=== PATIENT | female | born 1960 | race Caucasian/White ===

== ENCOUNTER 2018-05-22 10:33 | Emergency (ER) | payer OTHER ==
--- NOTE | 2018-05-22 12:12 | RAD REPORT ---
EXAM DESCRIPTION: Lawson Mathew (2 Views)05/22/2018 11:55 am CLINICAL HISTORY: Cough COMPARISON: February 2017 FINDINGS: The lungs appear clear of acute infiltrate. The heart is normal size IMPRESSION: No acute abnormalities displayed
[2018-05-22] MEDS ORDERED: ALBUTEROL 2.5 MG/3 ML NEB SOL ONE (14:05)
--- NOTE | 2018-05-22 14:29 | ER ---
Nurse's Notes [facility] Name: Winnie Underwood Age: 57 yrs Sex: Female : 1960 Arrival Date: 05/22/2018 Time: 10:38 Bed 26 Private MD: Tim Daniel Diagnosis: Cough Presentation: 05/22 11:19 Presenting complaint: Patient states: Cough and congestion since Thursday, seen by urgent aj care on Thursday and DX with URI, given Cefdinir and Tessalon Perles. Reports cough is worse at night. Transition of care: patient was not received from another setting of care. Onset of symptoms was May 15, 2018. Risk Assessment: Do you want to hurt yourself or someone else? Patient reports no desire to harm self or others. Initial Sepsis Screen: Does the patient meet any 2 criteria? No. Patient's initial sepsis screen is negative. Does the patient have a suspected source of infection? No. Patient's initial sepsis screen is negative. Care prior to arrival: None. 11:19 Method Of Arrival: Ambulatory aj 11:19 Acuity: YADIRA 3 aj Triage Assessment: 11:22 General: Appears in no apparent distress. comfortable, Behavior is calm, cooperative, aj appropriate for age. Pain: Denies pain. EENT: Reports nasal congestion nasal discharge. Neuro: Level of Consciousness is awake, alert, obeys commands, Oriented to person, place, time, situation, Appropriate for age. Respiratory: Airway is patent Respiratory effort is even, unlabored, Respiratory pattern is regular, symmetrical. Derm: Skin is intact, is healthy with good turgor, Skin is pink, warm \T\ dry. normal. Historical: - Allergies: 11:22 No Known Allergies; aj - PMHx: 11:22 Crohn's; Hypertension; Hypothyroidism; aj - PSHx: 11:22 Hysterectomy; Cholecystectomy; Appendectomy; aj - Immunization history:: Adult Immunizations up to date. - Social history:: Smoking status: Patient/guardian denies using tobacco. - Ebola Screening: : Patient negative for fever greater than or equal to 101.5 degrees Fahrenheit, and additional compatible Ebola Virus Disease symptoms Patient denies exposure to infectious person Patient denies travel to an Ebola-affected area in the 21 days before illness onset No symptoms or risks identified at this time. Screenin:38 Abuse screen: Denies threats or abuse. Nutritional screening: No deficits noted. tl3 Tuberculosis screening: No symptoms or risk factors identified. Fall Risk None identified. Assessment: 13:30 General: Appears in no apparent distress. uncomfortable, well groomed, well developed, tl3 well nourished, Behavior is calm, cooperative, appropriate for age. Pain: Denies pain. Neuro: No deficits noted. Level of Consciousness is awake, alert, obeys commands. Cardiovascular: Heart tones S1 S2 present Patient's skin is warm and dry. Respiratory: Reports cough that is hacking, Airway is patent Respiratory effort is even, unlabored, Respiratory pattern is regular, symmetrical. GI: No signs and/or symptoms were reported involving the gastrointestinal system. : No signs and/or symptoms were reported regarding the genitourinary system. EENT: No signs and/or symptoms were reported regarding the EENT system. Derm: No deficits noted. No signs and/or symptoms reported regarding the dermatologic system. Musculoskeletal: No signs and/or symptoms reported regarding the musculoskeletal system. 14:38 Reassessment: Patient appears in no apparent distress at this time. Patient and/or tl3 family updated on plan of care and expected duration. Pain level reassessed. Patient is alert, oriented x 3, equal unlabored respirations, skin warm/dry/pink. Tremaine at bedside discussing POC with pt. Vital Signs: 11:22 BP 128 / 80; Pulse 105; Resp 19; Temp 98.1; Pulse Ox 97% on R/A; Weight 104.33 kg; aj Height 5 ft. 7 in. (170.18 cm); 14:38 BP 116 / 84; Pulse 100; Resp 18; Pulse Ox 96% on R/A; tl3 11:22 Body Mass Index 36.02 (104.33 kg, 170.18 cm) aj ED Course: 10:38 Patient arrived in ED. mr 10:38 Tim Daniel MD is Private Physician. mr 11:21 Triage completed. aj 11:22 Arm band placed on left wrist. Patient placed in waiting room, Patient notified of wait aj time. X-ray ordered. 11:43 Patient moved to radiology. ag1 11:52 Chest Pa And Lat (2 Views) XRAY In Process Unspecified. EDMS 13:37 Tremaine Lopez PA is PHCP. jr8 13:37 Juan Schwartz MD is Attending Physician. jr8 13:57 Irais Larson, DAVID is Primary Nurse. tl3 14:28 Tim Daniel MD is Referral Physician. jr8 14:38 Patient has correct armband on for positive identification. Bed in low position. tl3 14:38 No provider procedures requiring assistance completed. Patient did not have IV access tl3 during this emergency room visit. Administered Medications: 14:02 Drug: Albuterol 2.5 mg Route: Inhalation; tl3 14:23 Follow up: Response: No adverse reaction tl3 Outcome: 14:28 Discharge ordered by . jr8 14:38 Discharged to home ambulatory. tl3 14:38 Condition: stable 14:38 Discharge instructions given to patient, Instructed on discharge instructions, follow up and referral plans. medication usage, Demonstrated understanding of instructions, follow-up care, medications, Prescriptions given X 3. 14:41 Patient left the ED. tl3 Signatures: Dispatcher [employer] EDMS Jemima Fuentes RN RN aj Rivera, Mary mr Tremaine Lopez PA PA [facility] Phylicia Yeh 1 Irais Larson, RN RN tl3 Corrections: (The following items were deleted from the chart) 14:38 13:30 BP 116 / 84; Pulse 100bpm; Resp 18bpm; Pulse Ox 96% RA; tl3 tl3
--- NOTE | 2018-05-22 14:29 | EDPHYS ---
Physician Documentation [facility] Name: Winnie Underwood Age: 57 yrs Sex: Female : 1960 Arrival Date: 05/22/2018 Time: 10:38 Bed 26 Private MD: Tim Daniel ED Physician Juan Schwartz HPI: 05/22 14:19 This 57 yrs old Female presents to ER via Ambulatory with complaints of jr8 Cough, Chest Congestion. 14:19 The patient or guardian reports cough, that is intermittent, described as moderate, jr8 with no sputum. Onset: The symptoms/episode began/occurred gradually, 1 week(s) ago. Severity of symptoms: At their worst the symptoms were mild, in the emergency department the symptoms are unchanged. Modifying factors: The symptoms are alleviated by nothing, the symptoms are aggravated by nothing. Associated signs and symptoms: The patient has no apparent associated signs or symptoms. The patient has not experienced similar symptoms in the past. The patient has been recently seen by a physician:. was given antibiotic and Tessalon pearls. Still coughing . Historical: - Allergies: 11:22 No Known Allergies; aj - PMHx: 11:22 Crohn's; Hypertension; Hypothyroidism; aj - PSHx: 11:22 Hysterectomy; Cholecystectomy; Appendectomy; aj - Immunization history:: Adult Immunizations up to date. - Social history:: Smoking status: Patient/guardian denies using tobacco. - Ebola Screening: : Patient negative for fever greater than or equal to 101.5 degrees Fahrenheit, and additional compatible Ebola Virus Disease symptoms Patient denies exposure to infectious person Patient denies travel to an Ebola-affected area in the 21 days before illness onset No symptoms or risks identified at this time. ROS: 14:19 Eyes: Negative for injury, pain, redness, and discharge, ENT: Negative for injury, jr8 pain, and discharge, Neck: Negative for injury, pain, and swelling, Cardiovascular: Negative for chest pain, palpitations, and edema, Abdomen/GI: Negative for abdominal pain, nausea, vomiting, diarrhea, and constipation, Back: Negative for injury and pain, MS/Extremity: Negative for injury and deformity, Skin: Negative for injury, rash, and discoloration, Neuro: Negative for headache, weakness, numbness, tingling, and seizure. 14:19 Respiratory: Positive for cough, Negative for dyspnea on exertion, hemoptysis, pleurisy, shortness of breath, sputum production, wheezing. Exam: 14:19 Eyes: Pupils equal round and reactive to light, extra-ocular motions intact. Lids and jr8 lashes normal. Conjunctiva and sclera are non-icteric and not injected. Cornea within normal limits. Periorbital areas with no swelling, redness, or edema. ENT: Nares patent. No nasal discharge, no septal abnormalities noted. Tympanic membranes are normal and external auditory canals are clear. Oropharynx with no redness, swelling, or masses, exudates, or evidence of obstruction, uvula midline. Mucous membranes moist. Neck: Trachea midline, no thyromegaly or masses palpated, and no cervical lymphadenopathy. Supple, full range of motion without nuchal rigidity, or vertebral point tenderness. No Meningismus. Cardiovascular: Regular rate and rhythm with a normal S1 and S2. No gallops, murmurs, or rubs. Normal PMI, no JVD. No pulse deficits. Abdomen/GI: Soft, non-tender, with normal bowel sounds. No distension or tympany. No guarding or rebound. No evidence of tenderness throughout. Back: No spinal tenderness. No costovertebral tenderness. Full range of motion. Skin: Warm, dry with normal turgor. Normal color with no rashes, no lesions, and no evidence of cellulitis. MS/ Extremity: Pulses equal, no cyanosis. Neurovascular intact. Full, normal range of motion. Neuro: Awake and alert, GCS 15, oriented to person, place, time, and situation. Cranial nerves II-XII grossly intact. Motor strength 5/5 in all extremities. Sensory grossly intact. Cerebellar exam normal. Normal gait. 14:19 Respiratory: the patient does not display signs of respiratory distress, Respirations: normal, symetrical, no use of accessory muscles, no grunting, no evidence of nasal flaring, no appreciated paradoxical movements, no prolonged exhalations, no pursed lip breathing, no retractions, no shallow respirations, no splinting, no tachypnea, Breath sounds: wheezing: expiratory that is mild, is heard diffusely. Vital Signs: 11:22 BP 128 / 80; Pulse 105; Resp 19; Temp 98.1; Pulse Ox 97% on R/A; Weight 104.33 kg; aj Height 5 ft. 7 in. (170.18 cm); 14:38 BP 116 / 84; Pulse 100; Resp 18; Pulse Ox 96% on R/A; tl3 11:22 Body Mass Index 36.02 (104.33 kg, 170.18 cm) aj MDM: 13:37 Patient medically screened. jr8 14:27 Differential Diagnosis: Bronchitis Influenza Upper Respiratory Infection Pharyngitis jr8 Viral Syndrome Pneumonia. Data reviewed: vital signs, nurses notes, radiologic studies, plain films, and as a result, I will discharge patient. Data interpreted: Pulse oximetry: on room air is 97 %. Interpretation: normal. Counseling: I had a detailed discussion with the patient and/or guardian regarding: the historical points, exam findings, and any diagnostic results supporting the discharge/admit diagnosis, radiology results, the need for outpatient follow up, a family practitioner, to return to the emergency department if symptoms worsen or persist or if there are any questions or concerns that arise at home. Response to treatment: the patient's symptoms have mildly improved after treatment. 05/22 11:23 Order name: Chest Pa And Lat (2 Views) XRAY; Complete Time: 13:36 Administered Medications: 14:02 Drug: Albuterol 2.5 mg Route: Inhalation; tl3 14:23 Follow up: Response: No adverse reaction tl3 Disposition: 18:00 Co-signature as Attending Physician, Juan Schwartz MD. Disposition: 05/22/18 14:28 Discharged to Home. Impression: Cough. - Condition is Stable. - Discharge Instructions: Cough, Adult. - Prescriptions for Prednisone 20 mg Oral Tablet - take 1 tablet by ORAL route once daily for 5 days; 5 tablet. Albuterol Sulfate 90 mcg/actuation - inhale 1-2 puff by INHALATION route every 4-6 hours; 1 Inhaler. Fluconazole 150 mg Oral Tablet - take 1 tablet by ORAL route one time; 1 tablet. - Medication Reconciliation Form, Thank You Letter, Antibiotic Education, Prescription Opioid Use form. - Follow up: Tim Daniel MD; When: 2 - 3 days; Reason: Recheck today's complaints, Continuance of care, Re-evaluation by your physician. - Problem is new. - Symptoms have improved. Signatures: Dispatcher [employer] Jemima Kincaid RN RN aj Roszak, Tremaine, PA PA jr8 Juan Schwartz MD MD gs Lowrey, Tammy, RN RN tl3 Corrections: (The following items were deleted from the chart) 14:41 14:28 05/22/2018 14:28 Discharged to Home. Impression: Cough. Condition is Stable. tl3 Forms are Medication Reconciliation Form, Thank You Letter, Antibiotic Education, Prescription Opioid Use. Follow up: Tim Daniel; When: 2 - 3 days; Reason: Recheck today's complaints, Continuance of care, Re-evaluation by your physician. Problem is new. Symptoms have improved. jr8
== END 2018-05-22 14:41 | disposition home or self-care (01) ==
LOC: ER 10:33
DX: R05 Cough (principal); I10 Essential (primary) hypertension
CPT/HCPCS: 71046; 99284

== ENCOUNTER 2018-07-02 07:31 | Emergency (ER) | payer OTHER ==
--- NOTE | 2018-07-02 09:13 | RAD REPORT ---
EXAM DESCRIPTION: US - Extremity Nonvascular Complete - 07/02/2018 9:02 am CLINICAL HISTORY: pain behind right knee Swelling COMPARISON: No comparisons TECHNIQUE: Real-time sonographic evaluation of the area of interest was performed. FINDINGS: Real-time sonography of the right popliteal region shows no evidence of mass or cyst. No u nusual or unexpected finding in the region. IMPRESSION: Negative study.
[2018-07-02] MEDS ORDERED: HYDROCODONE/APAP 10/325 TAB ONE (09:32)
--- NOTE | 2018-07-02 09:53 | EDPHYS ---
Physician Documentation [facility] Name: Winnie Underwood Age: 57 yrs Sex: Female : 1960 Arrival Date: 07/02/2018 Time: 07:34 Bed 18 Private MD: Tim Daniel ED Physician Dago Amos HPI: 07/02 09:36 This 57 yrs old Female presents to ER via Wheelchair with complaints of Knee kdr Pain. 09:36 The patient presents with decreased range of motion, an injury, pain, that is acute, kdr tenderness. The complaints affect the posterior aspect of right knee. Context: The problem was sustained at home, resulted from Was bending her knee and felt a pop then she could no longer bear weight, the patient is not able to bear weight, the patient is not able to ambulate, Problem is a result from a previous injury: No. Onset: The symptoms/episode began/occurred suddenly, yesterday. Modifying factors: The symptoms are alleviated by supine with knee elevated on pillow. the symptoms are aggravated by movement, weight bearing. Associated signs and symptoms: The patient has no apparent associated signs or symptoms. Treatment prior to arrival includes: no previous treatment. Severity of symptoms: At their worst the symptoms were moderate, in the emergency department the symptoms are unchanged. The patient has not experienced similar symptoms in the past. The patient has been recently seen by a physician: The patient had been seen by Dr. Daniel earlier this week and had plain films done that were negative. Today, she felt a pop in the back of her leg and has not been able to weight. n/v intact distally. Historical: - Allergies: 08:11 No Known Allergies; sg - Home Meds: 08:11 Synthroid 88 mcg Oral tab 1 tab once daily [Active]; Synthroid 100 mcg Oral tab 1 tab sg once daily [Active]; irbesartan-hydrochlorothiazide 300-12.5 mg oral tab 1 tab once daily [Active]; methotrexate sodium 2.5 mg oral tab 1 tab once wkly [Active]; Raberazole Sodium 20 mg 1 tab daily [Active]; methscopolamine oral oral 1 tab [Active]; Pentasa 500 mg Oral cpER for Crohn's Disease [Active]; folic acid 1 mg Oral tab 1 tab once daily [Active]; aspirin 81 mg Oral chew 1 tab once daily [Active]; Probiotic oral oral daily [Active]; Remicade 100 mg intravenous solr every 8 wks [Active]; - PMHx: 08:11 Crohn's; Hypertension; Hypothyroidism; sg - PSHx: 08:11 Hysterectomy; Cholecystectomy; Appendectomy; sg - Immunization history:: Adult Immunizations up to date. - Social history:: Smoking status: Patient/guardian denies using tobacco. - Ebola Screening: : Patient negative for fever greater than or equal to 101.5 degrees Fahrenheit, and additional compatible Ebola Virus Disease symptoms Patient denies exposure to infectious person Patient denies travel to an Ebola-affected area in the 21 days before illness onset No symptoms or risks identified at this time. ROS: 09:36 Constitutional: Negative for fever, chills, and weight loss. kdr 09:36 MS/extremity: Positive for decreased range of motion, pain, tenderness, of the posterior aspect of right knee, n/v intact distal to the knee. Exam: 09:36 Constitutional: This is a well developed, well nourished patient who is awake, alert, kdr and in no acute distress. 09:36 Musculoskeletal/extremity: Extremities: grossly normal except: noted in the posterior aspect of right knee: decreased ROM, pain, tenderness. Vital Signs: 08:03 BP 128 / 83; Pulse 88; Resp 16; Temp 97.7; Pulse Ox 98% on R/A; Weight 115.67 kg (R); sg Height 5 ft. 6 in. (167.64 cm) (R); Pain 8/10; 09:30 BP 131 / 78; Pulse 76; Resp 16; Pulse Ox 99% on R/A; em 08:03 Body Mass Index 41.16 (115.67 kg, 167.64 cm) sg MDM: 09:52 Patient medically screened. kdr 10:46 Data reviewed: vital signs, nurses notes, radiologic studies. Counseling: I had a kdr detailed discussion with the patient and/or guardian regarding: the historical points, exam findings, and any diagnostic results supporting the discharge/admit diagnosis, radiology results, the need for outpatient follow up. 07/02 08:17 Order name: Extremity Nonvascular Complete; Complete Time: 09:23 EDMS 07/02 09:23 Order name: Crutches; Complete Time: :26 kdr 07/02 09:23 Order name: Knee Immobilizer; Complete Time: 09:27 kdr Administered Medications: 09:26 Drug: Neon 10 mg-325 mg 1 tabs Route: PO; em 10:13 Follow up: Response: No adverse reaction; Pain is decreased em Disposition: 07/02/18 09:52 Discharged to Home. Impression: Pain in right knee. - Condition is Stable. - Discharge Instructions: Joint Pain, Musculoskeletal Pain, Knee Pain. - Prescriptions for Tylenol- Codeine #3 300-30 mg Oral Tablet - take 2 tablets by ORAL route every 6 hours As needed Take 1 - 2 tablets every 4 - 6 hours PRN pain; 16 tablet. - Medication Reconciliation Form, Thank You Letter, Antibiotic Education, Prescription Opioid Use form. - Follow up: Rk Elena MD; When: 2 - 3 days; Reason: If symptoms return, Further diagnostic work-up, Recheck today's complaints, Continuance of care, Re-evaluation by your physician. - Problem is new. - Symptoms have improved. - Notes: Call MRI Scheduleing at [phone], Ext #1 immediately upon discharged to be able to get your MRI of yoru right knee at 2:45 PM today. Signatures: Dispatcher [employer] Serge Waddell RN RN sg Dago Amos MD MD kdr Jose Abdullahi, ATTENDANT CHILD ACTIVITY ATTENDANT CHILD ACTIVITY em Corrections: (The following items were deleted from the chart) 08:17 08:12 Extrmty Non[employer]+[id number] ordered. EDIL EDIL 09:44 09:36 MS/extremity: Positive for decreased range of motion, pain, tenderness, of the kdr posterior aspect of right knee, kdr 10:13 09:52 07/02/2018 09:52 Discharged to Home. Impression: Pain in right knee. Condition is em Stable. Forms are Medication Reconciliation Form, Thank You Letter, Antibiotic Education, Prescription Opioid Use. Follow up: Rk Elena; When: 2 - 3 days; Reason: If symptoms return, Further diagnostic work-up, Recheck today's complaints, Continuance of care, Re-evaluation by your physician. Problem is new. Symptoms have improved. kdr
--- NOTE | 2018-07-02 09:53 | ER ---
Nurse's Notes [facility] Name: Winnie Underwood Age: 57 yrs Sex: Female : 1960 Arrival Date: 07/02/2018 Time: 07:34 Bed 18 Private MD: Tim Daniel Diagnosis: Pain in right knee Presentation: 07/02 08:01 Presenting complaint: Patient states: Was seen by for right knee pain, xray sg performed and recommended MRI for a possible tear injury, pt reports being started on methylprednison PO yesterday with Improvement, this morning she reports walking to the car for errands when she felt a pop in her and pain to the right knee, denies trauma or injury today. Transition of care: patient was not received from another setting of care. Onset of symptoms was July 02, 2018. Risk Assessment: Do you want to hurt yourself or someone else? Patient reports no desire to harm self or others. Initial Sepsis Screen: Does the patient meet any 2 criteria? No. Patient's initial sepsis screen is negative. Does the patient have a suspected source of infection? No. Patient's initial sepsis screen is negative. Care prior to arrival: None. 08:01 Method Of Arrival: Wheelchair sg 08:01 Acuity: YADIRA 4 sg Historical: - Allergies: 08:11 No Known Allergies; sg - Home Meds: 08:11 Synthroid 88 mcg Oral tab 1 tab once daily [Active]; Synthroid 100 mcg Oral tab 1 tab sg once daily [Active]; irbesartan-hydrochlorothiazide 300-12.5 mg oral tab 1 tab once daily [Active]; methotrexate sodium 2.5 mg oral tab 1 tab once wkly [Active]; Raberazole Sodium 20 mg 1 tab daily [Active]; methscopolamine oral oral 1 tab [Active]; Pentasa 500 mg Oral cpER for Crohn's Disease [Active]; folic acid 1 mg Oral tab 1 tab once daily [Active]; aspirin 81 mg Oral chew 1 tab once daily [Active]; Probiotic oral oral daily [Active]; Remicade 100 mg intravenous solr every 8 wks [Active]; - PMHx: 08:11 Crohn's; Hypertension; Hypothyroidism; sg - PSHx: 08:11 Hysterectomy; Cholecystectomy; Appendectomy; sg - Immunization history:: Adult Immunizations up to date. - Social history:: Smoking status: Patient/guardian denies using tobacco. - Ebola Screening: : Patient negative for fever greater than or equal to 101.5 degrees Fahrenheit, and additional compatible Ebola Virus Disease symptoms Patient denies exposure to infectious person Patient denies travel to an Ebola-affected area in the 21 days before illness onset No symptoms or risks identified at this time. Screenin:35 Abuse screen: Denies threats or abuse. Nutritional screening: No deficits noted. em Tuberculosis screening: No symptoms or risk factors identified. Fall Risk None identified. Assessment: 08:30 General: Appears in no apparent distress. uncomfortable, Behavior is calm, cooperative. em Pain: Complains of pain in right leg and posterior aspect of right knee Pain currently is 8 out of 10 on a pain scale. Neuro: Level of Consciousness is awake, alert, obeys commands, Oriented to person, place, time, situation. Cardiovascular: Patient's skin is warm and dry. Respiratory: Airway is patent Respiratory effort is even, unlabored, Respiratory pattern is regular, symmetrical. GI: Abdomen is round non-distended, Abd is soft and non tender X 4 quads. : No signs and/or symptoms were reported regarding the genitourinary system. EENT: No signs and/or symptoms were reported regarding the EENT system. Derm: Skin is intact, Skin is pink, warm \T\ dry. Musculoskeletal: Range of motion: limited in right knee. 08:40 Reassessment: Patient appears in no apparent distress at this time. I agree with above iw assessment by Jose Abdullahi LVN. 09:30 Reassessment: Patient appears in no apparent distress at this time. Patient and/or em family updated on plan of care and expected duration. Pain level reassessed. Patient is alert, oriented x 3, equal unlabored respirations, skin warm/dry/pink. Vital Signs: 08:03 BP 128 / 83; Pulse 88; Resp 16; Temp 97.7; Pulse Ox 98% on R/A; Weight 115.67 kg (R); sg Height 5 ft. 6 in. (167.64 cm) (R); Pain 8/10; 09:30 BP 131 / 78; Pulse 76; Resp 16; Pulse Ox 99% on R/A; em 08:03 Body Mass Index 41.16 (115.67 kg, 167.64 cm) ED Course: 07:34 Patient arrived in ED. as 07:35 Tim Daniel MD is Private Physician. as 07:54 Dago Amos MD is Attending Physician. kdr 08:01 Jose Abdullahi LVN is Primary Nurse. em 08:03 Triage completed. sg 08:11 Arm band placed on. sg 08:35 Patient has correct armband on for positive identification. Bed in low position. Call em light in reach. Side rails up X2. Adult w/ patient. 09:03 Extremity Nonvascular Complete In Process Unspecified. EDMS 09:47 Rk Elena MD is Referral Physician. kdr 10:09 No provider procedures requiring assistance completed. Patient did not have IV access em during this emergency room visit. Knee immobilizer applied on right knee. Administered Medications: 09:26 Drug: [place] 10 mg-325 mg 1 tabs Route: PO; em 10:13 Follow up: Response: No adverse reaction; Pain is decreased em Outcome: 09:52 Discharge ordered by MD. kdr 10:09 Discharged to home via wheelchair. em 10:09 Condition: good 10:09 Discharge instructions given to patient, Instructed on discharge instructions, follow up and referral plans. medication usage, Demonstrated understanding of instructions, follow-up care, medications, Prescriptions given X 1. 10:13 Patient left the ED. em Signatures: Dispatcher [employer] Serge Waddell, RN RN Dago Amos MD MD kdr Jose Abdullahi LVN LVN em Leticia Khan Irene, RN RN iw Corrections: (The following items were deleted from the chart) 10:12 08:30 GI: Abdomen is round non-distended, em em
--- NOTE | 2018-07-02 15:20 | RAD REPORT ---
EXAM DESCRIPTION: MRI - Knee Right Wo Cont - 07/02/2018 2:40 pm CLINICAL HISTORY: Knee pain, knee tenderness COMPARISON: None. TECHNIQUE: Sagittal and axial PD and T2 fat sat sequences obtained. Coronal T2 fat sat and T1 sequen isac also obtained. FINDINGS: No occult fracture, bone bruise or marrow replacing process. Patella chondral edema presen t without focal chondral defect. There is chondromalacia of the femoral condyles seen as chondral thi nning. Small subcortical degenerative cysts are present anterior midline knee. No full thickness oste ochondral defect identified. No patella tendon tear, thickening or signal abnormality. Quadriceps attachment also without suspicio us finding. Medial and lateral patella support structures are intact. Patient does have a small joint effusion with no hemarthrosis. No intra-articular loose body identifiable. Anterior cruciate, posterior cruciate, medial collateral and lateral collateral ligaments are intact. Degenerative signal is present within the medial meniscus. No medial meniscus tear is seen. Posterior horn and midbody lateral meniscus intact. There is extensive signal abnormality throughout the anterior horn lateral meniscus. Parameniscal cysts are present along the anterior margin of the a nterior horn medial meniscus. There is tear along the anterior capsular margin. A small intrameniscal cyst is present near the midline attachment of the anterior horn. IMPRESSION: Intrameniscal tear and capsular tear of the anterior horn lateral meniscus. No free or d isplaced meniscal tissue. Degenerative signal without tear seen in the posterior horn and mid body of the lateral meniscus. The re is degenerative signal in the medial meniscus without tear. Patella tendon and quadriceps tendon show no suspicious finding. No patella support structure acute f inding. Ligaments are intact. Small joint effusion without intra-articular loose body.
--- NOTE | 2018-07-06 14:09 | RAD REPORT ---
EXAM DESCRIPTION: MRI - Knee Right Wo Cont - 07/02/2018 2:40 pm CLINICAL HISTORY: Knee pain, knee tenderness COMPARISON: None. TECHNIQUE: Sagittal and axial PD and T2 fat sat sequences obtained. Coronal T2 fat sat and T1 sequences also obtained. FINDINGS: No occult fracture, bone bruise or marrow replacing process. Patella chondral edema present without focal chondral defect. There is chondromalacia of the femoral condyles seen as chondral thinning. Small subcortical degenerative cysts are present anterior midline knee. No full thickness osteochondral defect identified. No patella tendon tear, thickening or signal abnormality. Quadriceps attachment also without suspicious finding. Medial and lateral patella support structures are intact. Patient does have a small joint effusion with no hemarthrosis. No intra-articular loose body identifiable. Anterior cruciate, posterior cruciate, medial collateral and lateral collateral ligaments are intact. Degenerative signal is present within the medial meniscus. No medial meniscus tear is seen. Posterior horn and midbody lateral meniscus intact. There is extensive signal abnormality throughout the anterior horn lateral meniscus. Parameniscal cysts are present along the anterior margin of the anterior horn medial meniscus. There is tear along the anterior capsular margin. A small intrameniscal cyst is present near the midline attachment of the anterior horn. IMPRESSION: Intrameniscal tear and capsular tear of the anterior horn lateral meniscus. No free or displaced meniscal tissue. Degenerative signal without tear seen in the posterior horn and mid body of the lateral meniscus. There is degenerative signal in the medial meniscus without tear. Patella tendon and quadriceps tendon show no suspicious finding. No patella support structure acute finding. Ligaments are intact. Small joint effusion without intra-articular loose body. Signed By: Dawit Oscar MD Signed AT: 07/02/18 [id number]
== END 2018-07-02 10:13 | disposition home or self-care (01) ==
LOC: ER 07:31
DX: S83.281A Other tear of lateral meniscus, current injury, right knee, initial encounter (principal); X58.XXXA Exposure to other specified factors, initial encounter; M25.461 Effusion, right knee; E03.9 Hypothyroidism, unspecified; I10 Essential (primary) hypertension; K50.90 Crohn's disease, unspecified, without complications; Z79.899 Other long term (current) drug therapy
CPT/HCPCS: 76881; 99284